=== PATIENT | male | born 1965 | race African-American/Black ===

== ENCOUNTER 2023-11-21 10:29 | Observation (INO) | payer OTHER ==
[2023-11-21 12:28] LABS: INR 1.09 (0.83-1.09); PROTHROMBIN TIME (PATIENT) 12.6 SEC (9.7-13.0)
[2023-11-21 12:31] LABS: ACTIVATED PTT 38.1 SECONDS (25.2-36.5)
[2023-11-21] MEDS: ALBUTEROL SO4 2.5/IPRATROPIUM 0.5 INH SOL 3 ML VIAL.NEB. NEB ONE (12:43)
[2023-11-21] MEDS: methylPREDNISolone NA SUCC 125 MG/2 ML VIAL IVPUSH ONE (12:43)
[2023-11-21] MEDS ORDERED: methylPREDNISolone NA SUCC 125 MG/2 ML VIAL ONE (12:46)
[2023-11-21] MEDS ORDERED: ALBUTEROL SO4 2.5/IPRATROPIUM 0.5 INH SOL 3 ML VIAL.NEB. NEB ONE ×3 (12:46→20:08)
[2023-11-21 12:47] LABS: ALBUMIN 3.2 g/dl (3.4-5.0); CALCIUM 9.4 mg/dL (8.5-10.1)
[2023-11-21 12:50] LABS: BLOOD UREA NITROGEN 8.2 mg/dL (7-18); CREATININE 1.1 mg/dL (0.55-1.3)
[2023-11-21 12:52] LABS: BILIRUBIN,TOTAL 0.5 mg/dL (0.2-1); TOT PROT 7.3 g/dl (6.4-8.2)
[2023-11-21 13:03] LABS: BASO % 0.6 % (0-2.0); EOS % 0.5 % (0-4.5); HEMATOCRIT 44.4 % (35.4-49); HEMOGLOBIN 14.9 GM/dL (11.7-16.9); MCH 32.3 pg (25.7-33.7); MCHC 33.6 g/dl (32.0-35.9); MEAN CELL VOLUME 96.4 fl (80-96); MEAN PLT VOLUME 8.7 fl (7.5-11.1); NEUT % 61.9 % (42.8-82.8); PLATELET COUNT 317 10^3/uL (134-434); RBC 4.61 M/mm3 (4.00-5.60); RDW 13.3 % (11.9-15.9); WHITE BLOOD COUNT 7.5 K/mm3 (4.0-10.0)
[2023-11-21 14:55] LABS: VENOUS BASE EXCESS -0.5 mmol/L (-2-2); VENOUS O2 SATURATION 33.6 % (70-80); VENOUS PCO2 49.2 mmHg (38-52); VENOUS PH 7.339 (7.310-7.410)
[2023-11-21] MEDS: ALBUTEROL SO4 2.5/IPRATROPIUM 0.5 INH SOL 3 ML VIAL.NEB. NEB SCH (16:33)
[2023-11-21] MEDS ORDERED: OSELTAMIVIR PHOSPHATE 75 MG CAPSULE ONE (22:32)
[2023-11-21] MEDS: OSELTAMIVIR PHOSPHATE 75 MG CAPSULE PO SCH (22:35)
[2023-11-22 06:19] VITALS: RESP 18
[2023-11-22] MEDS ORDERED: ALBUTEROL SO4 2.5/IPRATROPIUM 0.5 INH SOL 3 ML VIAL.NEB. NEB ONE (07:43)
[2023-11-22 08:09] LABS: BASO % 0.3 % (0-2.0); EOS % 0.1 % (0-4.5); HEMATOCRIT 40.4 % (35.4-49); HEMOGLOBIN 12.9 GM/dL (11.7-16.9); LYMPH % 15.5 % (8-40); MCH 31.1 pg (25.7-33.7); MEAN CELL VOLUME 97.2 fl (80-96); MEAN PLT VOLUME 8.3 fl (7.5-11.1); MONO % 9.3 % (3.8-10.2); NEUT % 74.8 % (42.8-82.8); PLATELET COUNT 311 10^3/uL (134-434); RBC 4.16 M/mm3 (4.00-5.60); RDW 12.9 % (11.9-15.9)
[2023-11-22 08:25] LABS: POTASSIUM 3.8 mmol/L (3.5-5.1)
[2023-11-22 08:29] LABS: BLOOD UREA NITROGEN 11.1 mg/dL (7-18); CALCIUM 9.1 mg/dL (8.5-10.1)
[2023-11-22 08:33] LABS: CREATININE 1.1 mg/dL (0.55-1.3)
[2023-11-22 11:13] VITALS: BMI 29.5
[2023-11-22] MEDS: FLU VACCINE (FLULAVAL) PF 60 MCG/0.5 ML SYRINGE 2023-2024 IM ONE (13:29)
[2023-11-22] MEDS: PNEUMOC 20-VAL CONJ-DIP CRM/PF 0.5 ML SYRINGE IM ONE (13:31)
[2023-11-22] MEDS: ALBUTEROL SO4 2.5/IPRATROPIUM 0.5 INH SOL 3 ML VIAL.NEB. NEB PRN (15:14)
[2023-11-22] MEDS: FLUTICASONE/UMECLIDIN/VILANTER(200-62.5-25 TRELEGY ELLIPTA) INAHLER IH SCH (16:34)
[2023-11-22] MEDS: ACETAMINOPHEN 1000 MG/100 ML BAG IVPB ONE (17:47)
[2023-11-23] MEDS: ACETAMINOPHEN 1000 MG/100 ML BAG IVPB ONE (06:29)
[2023-11-23] MEDS: ALBUTEROL SO4 HFA INHALER IH PRN (06:44)
[2023-11-23 09:23] VITALS: BP 137/77; TEMP 97.5
[2023-11-23 11:17] LABS: BASO % 0.3 % (0-2.0); EOS % 0.9 % (0-4.5); HEMATOCRIT 42.7 % (35.4-49); HEMOGLOBIN 14.3 GM/dL (11.7-16.9); LYMPH % 21.7 % (8-40); MCH 32.3 pg (25.7-33.7); MCHC 33.6 g/dl (32.0-35.9); MEAN CELL VOLUME 96.2 fl (80-96); MEAN PLT VOLUME 8.1 fl (7.5-11.1); NEUT % 70.1 % (42.8-82.8); PLATELET COUNT 392 10^3/uL (134-434); RBC 4.44 M/mm3 (4.00-5.60); RDW 13.2 % (11.9-15.9); WHITE BLOOD COUNT 7.2 K/mm3 (4.0-10.0)
[2023-11-23 11:49] VITALS: PULSE 114
[2023-11-23 11:58] LABS: ALBUMIN 3.2 g/dl (3.4-5.0); BLOOD UREA NITROGEN 13.1 mg/dL (7-18); CALCIUM 9.3 mg/dL (8.5-10.1)
[2023-11-23 12:02] LABS: CREATININE 1.2 mg/dL (0.55-1.3)
[2023-11-23 12:03] LABS: BILIRUBIN,TOTAL 0.5 mg/dL (0.2-1); TOT PROT 7.2 g/dl (6.4-8.2)
[2023-11-23 12:07] LABS: CHOLESTEROL 179 mg/dL (50-200)
[2023-11-23 12:09] LABS: HDL CHOLESTEROL 48 mg/dL (40-60); LDL CHOLESTEROL (ONLY SJRH) 112 mg/dL (5-100)
[2023-11-23] MEDS ORDERED: ALBUTEROL SO4 2.5/IPRATROPIUM 0.5 INH SOL 3 ML VIAL.NEB. NEB SCH (12:45)
[2023-11-23 15:28] LABS: COCAINE, UR POSITIVE (NEGATIVE); METHADONE, UR NEGATIVE (NEGATIVE); OPIATES, URI NEGATIVE (NEGATIVE); PHENCYCLIDINE,URINE NEGATIVE (NEGATIVE); URINE AMPHETAMINES NEGATIVE (NEGATIVE); URINE BARBITURATES NEGATIVE (NEGATIVE); URINE BENZODIAZEPINES NEGATIVE (NEGATIVE)
== END 2023-11-23 15:24 | disposition home or self-care (01) ==
LOC: JER 10:29 → OBSVTOIN 13:23 → JERBED 13:23 → INTOOBSV 13:23 → UNDOADMOB 13:23 → JERBED 11-22 09:40 → J6S 11-22 10:54
PROVIDERS: ADMIT Internal Medicine; ATTEND Internal Medicine
PROC: 3E033NZ Introduction of Analgesics, Hypnotics, Sedatives into Peripheral Vein, Percutaneous Approach (ICD-10-PCS; principal; 2023-11-22)
PROC: 3E0F7GC Introduction of Other Therapeutic Substance into Respiratory Tract, Via Natural or Artificial Opening (ICD-10-PCS; 2023-11-22)
PROC: 3E033GC Introduction of Other Therapeutic Substance into Peripheral Vein, Percutaneous Approach (ICD-10-PCS; 2023-11-22)
PROC: 3E023GC Introduction of Other Therapeutic Substance into Muscle, Percutaneous Approach (ICD-10-PCS; 2023-11-22)
DX: J43.9 Emphysema, unspecified (principal); R09.02 Hypoxemia; J44.9 Chronic obstructive pulmonary disease, unspecified; M19.90 Unspecified osteoarthritis, unspecified site; Z20.828 Contact with and (suspected) exposure to other viral communicable diseases; F17.200 Nicotine dependence, unspecified, uncomplicated; J30.1 Allergic rhinitis due to pollen; R93.89 Abnormal findings on diagnostic imaging of other specified body structures; Z23 Encounter for immunization
CPT/HCPCS: 0241U-QW; 36415; 71045-TC-FY; 71260-TC; 80048; 80053; 80061; 80307; 82550; 82553; 82803; 83036; 83605; 84484; 85025; 85610; 85730; 86850; 86900; 86901; 87040; 87086; 90677; 90686; 93005; 93010; 94640; 94761; 96372; 96374; 96375; 96376; 99285-25; G0378; J0131; Q9967